=== PATIENT | male | born 1965 | race Caucasian/White ===

== ENCOUNTER 2020-11-04 09:13 | Emergency (ER) | payer OTHER, BC, SELFPAY ==
[2020-11-04 09:15] VITALS: BP 150/92; PULSE 69; RESP 13; TEMP 37.1; O2SAT 99; BMI 25.0
[2020-11-04 09:30] VITALS: BP 132/90; PULSE 69; O2SAT 95
--- NOTE | 2020-11-04 09:34 | ECG_ITS ---
APPROVED REPORT Exam: Resting ECG HR:67 bpm ECG Measurements Heart Rate 67 AXES OK 164 P 57 QRSd 96 QRS 23 QT 384 T 55 QTc 405 Conclusion Normal sinus rhythm Normal ECG Electronically signed by : Jose Schumacher, 11/05/2020 18:08:05
--- NOTE | 2020-11-04 09:56 | XR_ITS ---
PROCEDURE: XR CHEST 2V CLINICAL HISTORY: pain COMPARISON: No exams were available for comparison FINDINGS: The cardiomediastinal silhouette and pulmonary vascularity are within normal limits. The lungs are clear without infiltrates, suspicious nodules, or pleural effusions. No acute bony abnormalities. IMPRESSION: No acute findings. Dictated by: Nuno Gaitan MD 11/04/2020 11:17 Nuno Gaitan MD in [place] 11/04/2020 11:17
[2020-11-04 10:11] LABS: Basophils % 0.5 % (0.1-2.0); Eosinophils # 0.1 K/mm3 (0.0-0.4); Eosinophils % 1.7 % (0.1-12.0); Hematocrit 44.9 % (42.0-52.0); Hemoglobin 15.3 g/dL (14.1-18.0); Lymphocytes # 1.7 K/mm3 (0.7-4.5); Lymphocytes % 23.3 % (10-50); Mean Corpuscular HGB Conc 34.2 g/dL (31.8-35.4); Mean Corpuscular Hemoglobin 32.4 pg (27.0-31.2); Mean Corpuscular Volume 94.8 fl (80-94); Mean Platelet Volume 7.1 fl (7.4-10.4); Monocytes # 0.4 K/mm3 (0.1-1.0); Monocytes % 5.5 % (1.7-9.3); Neutrophils # 4.9 K/mm3 (1.8-7.8); Neutrophils % 69.1 % (37.0-80.0); Platelet Count 341 K/mm3 (142-424); Red Blood Count 4.73 M/mm3 (4.60-6.20); Red Cell Distribution Width 13.3 % (11.5-17.5); White Blood Count 7.1 K/mm3 (4.8-10.8)
[2020-11-04 10:12] LABS: Chloride 105 mmol/L (98-107); Sodium 140 mmol/L (136-145)
[2020-11-04 10:13] LABS: Potassium 3.8 mmoL/L (3.5-5.1)
[2020-11-04 10:16] LABS: Anion Gap 10.8 mEq/L (5-15); Blood Urea Nitrogen 17 mg/dl (9-20); Calcium 9.6 mg/dl (8.4-10.2); Carbon Dioxide 28 mmol/L (22.0-30.0); Creatinine Clearance Estimated 109 mL/min (50-200); Estimated Glomerular Filt Rate 87 ml/min (>60); GFR (African American) 106 ML/MIN (>60); Glucose 103 mg/dl (74-100)
--- NOTE | 2020-11-04 10:16 | PC.NURSE ---
Pt ot rad.
[2020-11-04 10:28] LABS: Troponin I < 0.01 ng/ml (0.00-0.034)
[2020-11-04 10:31] LABS: Coronavirus 19 IgG Antibody Positive (Negative); Coronavirus 19 IgM Antibody Negative (Negative)
[2020-11-04 10:44] VITALS: BP 140/85; PULSE 65; O2SAT 97
[2020-11-04 11:00] VITALS: BP 133/92; PULSE 67; O2SAT 97
--- NOTE | 2020-11-04 12:27 | HMH.EDGENADL ---
ED Disposition Clinical Impression: Left shoulder pain Qualifiers: Chronicity: unspecified Qualified Code(s): M25.512 - Pain in left shoulder Disposition: Home, Self-Care Condition on Discharge: Fair Instructions: DI for Shoulder Pain Additional Instructions: labs and x-rays are as follows: chest x-ray shows no acute findings; CBC shows no acute findings; CMP shows no acute findings; SARS Covid IgG is positive IgM is negative; vital signs are stable; troponin is negative; D-dimer is mildly elevated; Plan is to discharge home with reassurance and advise to follow-up as needed; Please follow up with orthopedics if not improving; We have prescribed medications to help you Prescriptions: methylPREDNISolone [Medrol 4mg tab] 4 mg PO DIRECTED #21 tab Prescription Printed Referrals: PCPKayce [Primary Care Provider] - Time of Disposition: 14:39 - Critical Care Critical Care Time: No Attestation: On 11/04/20, the high probability of a clinically significant, sudden or life threatening deterioration of the following system(s) required my full and direct attention, intervention and personal management. The time I documented below is in addition to time spent performing reported procedures but includes the following listed in this critical care notation. Medical Decision Making - Medical Records Medical records reviewed: Yes: I reviewed the patient's medical records. MR Comment: 54 year old male with c/o upper left top shoulder pain. States that the pain increases when he takes a deep breath or moves his neck that way. He feels some soa but he has that from time to time; he has no family history of heart disease no history of diabetes. Patient's labs and x-rays are as follows chest x-ray shows no acute findings CBC shows no acute findings CMP shows no acute findings SARS Covid IgG is positive IgM is negative vital signs are stable troponin is negative D-dimer is mildly elevated; Plan is to discharge patient home with reassurance and advise to follow-up as needed - Emre Inquiry Pt receiving controlled substance: No Vital Signs: 11/04/20 09:15 11/04/20 09:30 11/04/20 10:44 Temperature 98.7 F Temperature Source Oral Pulse Rate [Left Radial] 69 69 65 Respiratory Rate 13 Blood Pressure [Right Arm] 150/92 H 132/90 140/85 Blood Pressure Mean [Right Arm] 111 104 103 Blood Pressure Source [Right Arm] Automatic Cuff Automatic Cuff Automatic Cuff Blood Pressure Position [Right Arm] Sitting Sitting Sitting 02 Sat by Pulse Oximetry 99 95 97 Oxygen Delivery Method Room Air Room Air 11/04/20 11:00 11/04/20 13:42 Temperature Temperature Source Pulse Rate [Left Radial] 67 65 Respiratory Rate Blood Pressure [Right Arm] 133/92 H 135/88 Blood Pressure Mean [Right Arm] 105 103 Blood Pressure Source [Right Arm] Automatic Cuff Automatic Cuff Blood Pressure Position [Right Arm] Sitting Sitting 02 Sat by Pulse Oximetry 97 97 Oxygen Delivery Method Room Air Room Air - Lab Data Lab results reviewed: Yes: I reviewed the patient's lab results. Lab Results 11/04/20 09:40: WBC 7.1, RBC 4.73, Hgb 15.3, Hct 44.9, MCV 94.8 H, MCH 32.4 H, MCHC 34.2, RDW 13.3, Plt Count 341, MPV 7.1 L, Neut % (Auto) 69.1, Lymph % (Auto) 23.3, [place] % (Auto) 5.5, Eos % (Auto) 1.7, Baso % (Auto) 0.5, Neut # (Auto) 4.9, Lymph # (Auto) 1.7, [place] # (Auto) 0.4, Eos # (Auto) 0.1, Baso # (Auto) 0.0 11/04/20 09:40: Sodium 140, Potassium 3.8, Chloride 105, Carbon Dioxide 28, Anion Gap 10.8, BUN 17, Creatinine 0.90, Estimated Creat Clear 109, Estimated GFR 87, Est GFR ( Amer) 106, Glucose 103 H, Calcium 9.6, Troponin I < 0.01 11/04/20 09:40: SARS-CoV-2 IgG Ab (Rapid) Positive A, SARS-CoV-2 IgM Ab (Rapid) Negative 11/04/20 09:40: D-Dimer 0.65 H Result diagrams: 11/04/20 09:40 11/04/20 09:40 Orders (Tests/Meds): ED MEDICATIONS Discontinued Medications Generic Name Dose Route Start Last Admin Trade Name Freq PRN Reason Stop Dos
[2020-11-04 12:38] LABS: D-Dimer 0.65 ug/mL (0.0-0.5)
[2020-11-04 13:42] VITALS: BP 135/88; PULSE 65; O2SAT 97
--- NOTE | 2020-11-04 14:18 | PC.NURSE ---
repeat trop sent to lab.
[2020-11-04 14:58] LABS: Troponin I < 0.01 ng/ml (0.00-0.034)
[2020-11-04 15:06] VITALS: BP 135/68; PULSE 74; RESP 16; TEMP 36.6; O2SAT 98
== END 2020-11-04 15:08 | disposition home or self-care (01) ==
PROVIDERS: Emergency Provider Emergency Medicine; PCP Family Medicine
DX: M25.512 Pain in left shoulder (principal); Z01.84 Encounter for antibody response examination
CPT/HCPCS: 71046; 80048; 84484; 85025; 85378; 86328; 93005; 96374; 96375; 99283

== ENCOUNTER 2022-04-29 09:42 | Emergency (ER) | payer BC, OTHER, SELFPAY ==
[2022-04-29 09:43] VITALS: BP 137/86; PULSE 66; RESP 16; TEMP 37.1; O2SAT 98; BMI 25.7
[2022-04-29 09:52] VITALS: BP 137/86; PULSE 65; RESP 16; O2SAT 100
--- NOTE | 2022-04-29 10:11 | HMH.EDGENADL ---
ED Disposition Clinical Impression: Left inguinal hernia Disposition: Home, Self-Care Condition on Discharge: Good Instructions: DI for Groin Hernia Additional Instructions: Follow-up with general surgeon, Dr. Jimenez, call for appointment. Avoid lifting anything greater than 20 pounds or straining such as pushing, pulling, or trying to have a bowel movement. You may take ibuprofen for pain. Return to the emergency room if worsening pain, abdominal pain or distention, or vomiting. Referrals: Reva Renae MD [Primary Care Provider] - Alonzo Jimenez MD [Staff Physician] - - Critical Care Critical Care Time: No Attestation: On 04/29/22, the high probability of a clinically significant, sudden or life threatening deterioration of the following system(s) required my full and direct attention, intervention and personal management. The time I documented below is in addition to time spent performing reported procedures but includes the following listed in this critical care notation. Medical Decision Making - Emre Inquiry Pt receiving controlled substance: No Vital Signs: 04/29/22 09:43 04/29/22 09:52 Temperature 98.8 F Temperature Source Oral Pulse Rate 65 Pulse Rate [Radial] 66 Respiratory Rate 16 16 Blood Pressure 137/86 Blood Pressure [Right Arm] 137/86 Blood Pressure Mean 106 Blood Pressure Mean [Right Arm] 103 Blood Pressure Position [Right Arm] Sitting 02 Sat by Pulse Oximetry 98 100 Oxygen Delivery Method Room Air Medical Decision Narrative: He has a left inguinal hernia that is reducible. He declines any pain medication. He will be given a surgical referral. Given precautions regarding lifting and straining. Given return instructions for any symptoms suggesting incarcerated or strangled hernia. General Adult HPI - General Chief complaint: PAIN Stated complaint: side pain Time Seen by Provider: 04/29/22 10:12 Mode of Arrival: Ambulatory Limitations: No Limitations Description of Symptoms (Recalled from ER Triage Doc. by RN): TO ED PER [facility]T CAR WITH C/O INTERMITTENT LT LOWER ABD PAIN STARTING SUNDAY. PT STATES I HAD A STOMACH BUG STARTING SUNDAY WITH DIARRHEA, BUT SYMPTOMS HAVE NOW RESOLVED PT STATES HE HAS HX OF A HERNIA FOR A WHILE . PT STATES PAIN WITH COUGHING OR LAUGHING . PT DENIES ANY FEVER, CHILLS, NAUSEA, VOMITING. - History of Present Illness HPI narrative: States I have a hernia . States he has had it for quite some time, years, but it has been bothering him more lately over the past couple of weeks. More so since he had a stomach bug that caused him to have severe watery diarrhea for 3 days. He complains of pain in his left groin and at times has a visible, palpable mass in that area, states the mass comes and goes. He says he was on his feet at work for an entire shift and this caused increase soreness, stated it hurt all shift. No vomiting. He took Imodium for his recent diarrhea and now has returned to having normal formed bowel movements, his last bowel movement was today. He did not have any fever or bloody diarrhea. He has had a previous right inguinal hernia repair years ago in [place]. - Related Data Previous Rx's Medication Instructions Recorded methylPREDNISolone [Medrol 4mg 4 mg PO DIRECTED #21 tab 11/04/20 tab] Allergies Allergy/AdvReac Type Severity Reaction Status Date / Time No Known Allergies Allergy Verified 11/04/20 09:56 [facility] History - Hepatitis A Screen Attestation statement:: This patient has been screened for Hepatitis A risk factors. I have reviewed the patient's past medical history: Yes ROS Obtained: Yes Systems reviewed as appropriate & no additional complaints - Constitutional Constitutional: Denies fever(s) - Gastrointestinal Gastrointestingal: Reports: as per HPI, abdominal pain, other (Known hernia, as noted). Denies: vomiting Physical Exam - General General appearance
[2022-04-29 10:35] VITALS: BP 128/74; PULSE 78; RESP 16; TEMP 36.6; O2SAT 98
== END 2022-04-29 10:36 | disposition home or self-care (01) ==
PROVIDERS: Emergency Provider Emergency Medicine; PCP Family Medicine
DX: K40.90 Unilateral inguinal hernia, without obstruction or gangrene, not specified as recurrent (principal)
CPT/HCPCS: 99283

== ENCOUNTER → 2022-05-02 09:54 | Outpatient (CLI) | payer BC, OTHER, SELFPAY ==
--- NOTE | 2022-05-02 10:01 | ECG_ITS ---
APPROVED REPORT Exam: Resting ECG HR:64 bpm ECG Measurements Heart Rate 64 AXES LA 173 P 67 QRSd 100 QRS 50 QT 374 T 69 QTc 384 Conclusion SINUS RHYTHM NORMAL ECG UNCONFIRMED REPORT Electronically signed by : Jose Schumacher MD 05/03/2022 21:03:21
[2022-05-02 10:19] LABS: Microscopic, Urine URINE MICROSCOPIC (MICROSCOPIC)
[2022-05-02 10:36] LABS: Appearance,Urine CLEAR (Clear); Bilirubin,Urine Negative (Negative); Blood, Urine Negative (Negative); Color,Urine YELLOW (Yellow); Glucose,Urine (UA) Negative (Negative); Ketones,Urine Negative (Negative); Leukocyte Esterase,Urine Negative (Negative); Nitrate,Urine Negative (Negative); PH,Urine 6.5 (5.0-8.5); Protein,Urine Negative (Negative); Urobilinogen,Urine 0.2 EU/dl (0.2)
[2022-05-02 10:42] LABS: Basophils # 0.1 K/mm3 (0-0.2); Basophils % 0.9 % (0.1-2.0); Eosinophils # 0.1 K/mm3 (0.0-0.4); Eosinophils % 1.4 % (0.1-12.0); Hematocrit 43.6 % (42.0-52.0); Lymphocytes # 1.8 K/mm3 (0.7-4.5); Lymphocytes % 29.8 % (10-50); Mean Corpuscular HGB Conc 34.5 g/dL (31.8-35.4); Mean Corpuscular Hemoglobin 31.5 pg (27.0-31.2); Mean Corpuscular Volume 91.4 fl (80-94); Mean Platelet Volume 7.3 fl (7.4-10.4); Monocytes # 0.3 K/mm3 (0.1-1.0); Monocytes % 5.6 % (1.7-9.3); Neutrophils # 3.8 K/mm3 (1.8-7.8); Neutrophils % 62.3 % (37.0-80.0); Platelet Count 361 K/mm3 (142-424); Red Blood Count 4.77 M/mm3 (4.60-6.20); Red Cell Distribution Width 12.6 % (11.5-17.5); White Blood Count 6.2 K/mm3 (4.8-10.8)
[2022-05-02 10:48] LABS: Bacteria,Urine Trace /lpf; Squamous Epithelial Cell,Urine Occasional #/hpf (0-5)
[2022-05-02 11:28] LABS: Anion Gap 10.3 mEq/L (5-15); Blood Urea Nitrogen 15 mg/dl (9-20); Calcium 9.3 mg/dl (8.4-10.2); Carbon Dioxide 29 mmol/L (22.0-30.0); Chloride 105 mmol/L (98-107); Estimated Glomerular Filt Rate 99 ml/min (>60); GFR (African American) 120 ML/MIN (>60); Glucose 113 mg/dl (74-100); Potassium 4.3 mmoL/L (3.5-5.1); Sodium 140 mmol/L (136-145)
== END ==
PROVIDERS: Visit Provider Surgery
DX: K40.90 Unilateral inguinal hernia, without obstruction or gangrene, not specified as recurrent (principal)
CPT/HCPCS: 36415; 80048; 81001; 85025; 93005

== ENCOUNTER → 2022-05-15 16:34 | Outpatient (CLI) | payer BC, SELFPAY | PROVIDERS: PCP Family Medicine; Visit Provider Surgery | DX: Z01.812 Encounter for preprocedural laboratory examination (principal); Z20.822 Contact with and (suspected) exposure to COVID-19; K40.90 Unilateral inguinal hernia, without obstruction or gangrene, not specified as recurrent | CPT/HCPCS: C9803; U0003; U0005 ==

== ENCOUNTER 2022-05-18 07:21 | Day surgery (SDC) | payer BC, SELFPAY ==
[2022-05-18] VITALS (12 sets, daily range): BP systolic 125–141; BP diastolic 72–84; PULSE 61–74; RESP 16–18; TEMP 36.3–43; O2SAT 92–100; BMI 25.7
--- NOTE | 2022-05-18 08:26 | P.PN_ITS ---
[facility] Anesthesia Checklist - Patient Identification Patient Identification: Arm Band, Verbal (Name & ) - Structural Data Admitted From: Home Planned Operative Procedure/s: Left Inguinal Hernia Consent for Planned Operative Procedure(s) Verified: Yes Verified Documents: Surgical Consent - NPO Status Verified Time NPO: 00:00 - Chart Verification Results Verified: CBC, BMP - Additional verifications Anesthesia Reactions: No Hx Blood Transfusions: No Blood Transfusion Reaction: No - Airway Assessment C-Spine Mobility Assessed: Yes TMJ Mobility Assessed: Yes Dentition: Dentures-poor fitting - Neurological Assessment Level of Consciousness: Awake, Alert, Appropriate - Anesthesia Plan Anesthesia Type: General [facility] History Medical History: Reports:: Hyperlipidemia Denies:: Cancer, Diabetes Mellitus Type 1, Diabetes Mellitus Type 2, Internal Pacemaker, MRSA, Seizures *Have you ever received a pneumonia vaccine?: Yes *Have you received a flu vaccine this season?: No Other Medical History: Denies: Blood Transfusion Reaction Anesthesia experience/problems:: none Laterality Cases: Left: Arthroscopy Shoulder, Bilateral: Arthroscopy Knee Other Surgeries: Yes: Colonoscopy. No: Pacemaker Amputation: No Fractures: Yes - *Social History Last grade of school completed: High school graduate Smoking Status: Former smoker Tobacco Type: cigarettes # Packs/Day (cigarettes): 1 #Yrs smoked (if former smoker): 30 Smoking End Date: 05/22/11 Alcohol Intake: current Alcohol Intake Frequency:: 3 or more drinks per day Substance Use Type: denies use *Occupational Status:: employed Housing: house Household Members: spouse *Travel in the last 8 weeks: None Family Hx:: Hypertension
--- NOTE | 2022-05-18 10:24 | P.OP_ITS ---
Date of procedure: 05/18/22 Pre-op Diagnosis:: Left inguinal hernia Post-op Diagnosis:: Same Procedure performed:: Open left inguinal hernia repair Surgeon:: Alonzo Jimenez MD DOWEL INSERTING MACHINE OPERATOR:: Td Negro Anesthesia: LMA Estimated blood loss (mL): 15 Operative findings:: Indirect defect with large cord lipoma Marginal thinning of floor but no definitive direct defect Operative note:: After informed consent was obtained the patient was taken to the operating room and placed in the supine position. General anesthesia with laryngeal mask airway was achieved. His lower abdomen and groin/scrotum were prepped and draped in a sterile fashion. After infiltration with local anesthetic an oblique left groin incision was made. A combination of sharp dissection and electrocautery was utilized to transect through Nancy's fascia to the level of the external aponeurosis. The external aponeurosis was sharply opened to the level of the external ring. The contents of the canal were carefully elevated. A large cord lipoma was transected free from surrounding tissue and then excised by way of electrocautery. The hernia sac was then freed from surrounding tissue with a combination of blunt dissection, sharp dissection, and electrocautery. An extra-large PerFix plug was secured in the indirect defect with interrupted 0 Ethibond. The PerFix overlay mesh was then secured to the shelving edge inferiorly and fascial margin superiorly with interrupted Ethibond. The external aponeurosis was reapproximated with running 2-0 Vicryl. Nancy's fascia was closed in a similar manner. Skin was then closed with running 3-0 Monocryl Stratafix. Dressings were applied and the patient was transferred to recovery stable condition after removal of his laryngeal mask airway. Condition: stable Disposition: PACU Complications:: No immediate
--- NOTE | 2022-05-18 10:34 | HMH.ANESI ---
[facility] Anesthesia Record Part I Intake, IV Amount: 1,000 Estimated blood loss (mL): 5 Urine output (mL): 300 Blood Pressure: 140/79 SaO2: 92 Pulse Rate: 74 Respiratory Rate: 16 Temperature: 98.1 F Patient is:: Drowsy, Stable Stable to PACU at:: 10:30
[2022-05-18 12:41] LABS: Microscopic,Cath URINE MICROSCOPIC (MICROSCOPIC)
[2022-05-18 12:54] LABS: Appearance,Urine/Cath CLEAR (Clear); Bilirubin,Cath Negative (Negative); Blood, Urine/Cath Negative (Negative); Color,Urine/Cath YELLOW (Yellow); Glucose,Urine/Cath (UA) Negative (Negative); Ketones,Urine/Cath Negative (Negative); Leukocyte Esterase,Cath Negative (Negative); Nitrate,Cath Negative (Negative); Protein,Urine/Cath Negative (Negative); Urobilinogen,Cath 0.2 EU/dl (0.2)
[2022-05-18 13:12] LABS: Amorphous Sediment,Ur/Cath 1+ /lpf; Bacteria,Urine/Cath TRACE /lpf; WBC,Urine/Cath Occasional #/hpf (0-3)
--- NOTE | 2022-05-18 15:08 | HMH.ANESII ---
[facility] Anesthesia Record Part II Discharge Time: 11:00 Destination: Home PACU nurse assessment reviewed?: Yes Patient Condition:: Good Anesthesia Complications:: None Swallowing reflex intact?: Yes Cyanosis?: No Blood Pressure: 125/78 Pulse Rate: 71 Temperature: 98.2 F Mental Status: Alert & Oriented Pain level:: 0 Nausea and/or vomitting:: None Intake, IV Amount: 0
== END 2022-05-18 12:00 | disposition home or self-care (01) ==
LOC: OR 07:23
PROVIDERS: PCP Family Medicine; Visit Provider Surgery
PROC: (CPT 49505; principal; 2022-05-18 09:00)
DX: K40.90 Unilateral inguinal hernia, without obstruction or gangrene, not specified as recurrent (principal); E78.5 Hyperlipidemia, unspecified; Z79.82 Long term (current) use of aspirin; Z79.899 Other long term (current) drug therapy
CPT/HCPCS: 49505; 81001; 96374; J2405

== ENCOUNTER 2022-10-09 09:25 | Emergency (ER) | payer BC, SELFPAY ==
--- NOTE | 2022-10-09 10:27 | EXP.UTC ---
Discharge Plan Disposition Patient Disposition: Home, Self-Care Condition: Good Prescriptions Prescriptions: New azithromycin [Zithromax] 250 mg tablet 250 mg PO UD DOSE PK Qty: 6 0RF Rx Instructions: Take two (2) tablets today, then one (1) tablet days #2 thru #5 benzonatate [benzonatate] 100 mg capsule 100 mg PO TIDP PRN (Reason: Cough) Qty: 30 0RF methylprednisolone 4 mg Tablets,Dose Pack 4 mg PO DIRECTED Qty: 21 0RF No Action fenofibric acid (choline) 135 mg capsule,delayed release(DR/EC) 135 mg PO DAILY atorvastatin 20 mg tablet 20 mg PO DAILY Label Comments: TAKE 1 TABLET BY MOUTH NIGHTLY aspirin 81 mg tablet,delayed release (DR/EC) 81 mg PO DAILY Referrals Follow up/Referrals: Provider,Referral, MD [Primary Care Provider] - See instructions Activity Restrictions/Add. Instructions Additional Instructions/Restrictions: Drink plenty of fluids. Take tylenol or ibuprofen for pain or fever. Take the medications as directed. Follow up with your regular doctor. GO TO THE ER FOR ANY WORSENING SYMPTOMS Clinical Impressions Clinical Impression: Acute bronchitis, Sinusitis Instructions Patient Instructions: Acute Bronchitis, DI for Sinusitis, DI for Acute Bronchitis Discharge ED Provider: Adithya Rock [facility] HPI General Stated complaint: sore throat, head congestion Time Seen by Provider: 10/09/22 10:27 History of Present Illness Provider Complaint: He states that he has had sore throat, chest congestion, sinus congestion, for the past 2 weeks. Related Data Home Medications Medication Instructions Recorded Confirmed aspirin 81 mg tablet,delayed 81 mg PO DAILY heart health 05/02/22 05/31/22 release atorvastatin 20 mg tablet 20 mg PO DAILY Cholesterol 05/02/22 05/31/22 fenofibric acid (choline) 135 mg 135 mg PO DAILY Cholesterol 05/02/22 05/31/22 capsule,delayed release Previous Rx's Medication Instructions Recorded azithromycin 250 mg tablet 250 mg PO UD DOSE PK #6 tabs 10/09/22 (Zithromax) benzonatate 100 mg capsule 100 mg PO TIDP PRN Cough #30 caps 10/09/22 methylprednisolone 4 mg tablets in 4 mg PO DIRECTED #21 tabs 10/09/22 a dose pack Allergies Allergy/AdvReac Type Severity Reaction Status Date / Time No Known Allergies Allergy Verified 10/09/22 10:42 [facility] Disclaimer: The information contained in this section may have been updated after the patient was seen, as this information can be updated by other users. 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 current occupational exposures/hazards: No caffeine: Yes ROS Obtained: Yes All systems reviewed & no additional complaints except as documented Constitutional Constitutional: Reports chills and Denies fever(s) Eyes Eyes: Denies eye discharge ENT Ears, Nose, Mouth, and Throat: Reports as per HPI Cardiovascular Cardiovascular: Denies chest pain Respiratory Respiratory: Denies chest congestion and Reports cough Gastrointestinal Gastrointestingal: Reports nausea; Denies abdominal pain, constipation, cramping, diarrhea or vomiting Musculoskeletal Musculoskeletal: Denies arthralgias Integumentary/Breasts Skin/Breast: Denies rash Neurologic Neurologic: Denies paresthesias Physical Exam General General appearance: alert and in no apparent distress Eye Eye exam: Present normal appearance, PERRL and EOMI ENT ENT exam: Present mucous membranes moist and normal external ear exam Expanded ENT Exam External ear exam: Present normal external inspection TM/Canal exam: Bilateral TM: erythema and bulging Nose exam: Absent sinus te
[2022-10-09 10:40] VITALS: BP 155/90; PULSE 68; RESP 16; TEMP 36.9; O2SAT 97; BMI 24.4
[2022-10-09 10:43] LABS: UTC Influenza A Antigen Negative (Negative)
[2022-10-09 10:44] LABS: UTC Influenza B Antigen Negative (Negative)
[2022-10-09 11:15] VITALS: BP 155/90; PULSE 68; RESP 16; TEMP 36.9
== END 2022-10-09 11:19 | disposition home or self-care (01) ==
PROVIDERS: Emergency Provider Nurse Practitioner Family
DX: J40 Bronchitis, not specified as acute or chronic (principal); J32.9 Chronic sinusitis, unspecified
CPT/HCPCS: 87804; 99212; G0463

== ENCOUNTER 2023-08-18 10:22 | Emergency (ER) | payer BC, OTHER, SELFPAY ==
--- OUTSIDE RECORDS SUMMARY | 2023-08-18 10:26 | XMS_ITS | Continuity of Care Document ---
Author Name Unknown Organization [facility] Address [address] [place] [address] Phone Care Team Providers Care Berry Grower Name Role Phone Anirudh Lawrence MD Unavailable Unavailable Medications Medication Instructions Dosage Effective Dates (start - stop) Status Comments cyclobenzaprine 10 mg tablet take 1 tablet by oral route 3 times every day 10 MG - Active Medrol (Alejo) 4 mg tablets in a dose pack Per package instructions - Active ATORVASTATIN CALCIUM (unknown strength) take 1 tablet by oral route every day Not Available - Active Procedures Procedure Date Njx interlaminar lmbr/sac Methylprednisolone 80 MG inj Office/outpatient visit,est, mod 2019 MRI Lumbar Spine wo Contrast Office/outpatient visit,est, mod 2019 Njx interlaminar lmbr/sac Methylprednisolone 40 MG inj Office/outpatient visit,est, mod 2018 X-ray exam lower spine 2-3 views 2018 Njx interlaminar lmbr/sac Methylprednisolone 40 MG inj
[2023-08-18 10:30] VITALS: BP 152/76; PULSE 69; RESP 18; TEMP 36.8; O2SAT 98; BMI 25.7
--- NOTE | 2023-08-18 10:52 | EXP.UTC ---
Discharge Plan Disposition Patient Disposition: Home, Self-Care Condition: Good Prescriptions Prescriptions: New azithromycin [Zithromax] 250 mg tablet See Rx Instructions .ROUTE .COMPLEX Qty: 6 0RF Rx Instructions: For 250 mg dose pack: take 500 mg today (day 1), then 250 mg for 4 days (days 2-5) prednisone [prednisone] 20 mg tablet 20 mg PO BID Qty: 10 0RF No Action fenofibric acid (choline) 135 mg capsule,delayed release(DR/EC) 135 mg PO DAILY carvedilol 3.125 mg tablet 3.125 mg PO BID Patient Comments: TAKE 1 TABLET BY MOUTH TWICE DAILY WITH MEALS rosuvastatin 40 mg tablet 40 mg PO DAILY Patient Comments: TAKE 1 TABLET BY MOUTH ONCE DAILY IN THE EVENING aspirin 81 mg Capsule 81 mg PO DAILY Referrals Follow up/Referrals: Reva Renae MD [Primary Care Provider] - See instructions Activity Restrictions/Add. Instructions Additional Instructions/Restrictions: Start antibiotic today. Be sure to complete entire prescription even if feeling better Tylenol and ibuprofen as needed for pain or fever Humidifier/vaporizer/hot steamy shower Follow-up with primary care tomorrow. Follow-up immediately in the ER of the [facility] for new or worsening symptoms or no noticeable improvement over the next 48-72 hours. Stop smoking Start steroids today. Helps with inflammation therefore coughing and wheezing. Follow directions on package. Clinical Impressions Clinical Impression: Acute bronchitis Qualifiers: Bronchitis organism: other organism Qualified Code(s): J20.8 - Acute bronchitis due to other specified organisms Instructions Patient Instructions: DI for Acute Bronchitis Discharge ED Provider: Izaiah ([facility])Merritt [facility] HPI General Stated complaint: cough Mode of Arrival: Ambulatory Source of Information: Patient Limitations: No Limitations Time Seen by Provider: 08/18/23 10:52 Description of Symptoms (Recalled from Triage Doc. by RN): cough for a week and a half HEENT Symptoms (Recalled from RN notes): Yes Resp Symptoms (Recalled from RN notes): No Skin Symptoms (Recalled from RN notes): No MS Symptoms (Recalled from RN notes): No Functional Status (Recalled from RN notes): n/a History of Present Illness Provider Complaint: 57 yr old male presents for cough for over one week. pt states he feels its stuck in his chest and he is not able to cough anything up. pt states in march/april he went though treatment chemo/radiation for rectal cancer. Related Data Home Medications Medication Instructions Recorded Confirmed fenofibric acid (choline) 135 mg 135 mg PO DAILY Cholesterol 05/02/22 08/18/23 capsule,delayed release aspirin 81 mg capsule 81 mg PO DAILY 08/18/23 08/18/23 carvedilol 3.125 mg tablet 3.125 mg PO BID 08/18/23 08/18/23 rosuvastatin 40 mg tablet 40 mg PO DAILY 08/18/23 08/18/23 Previous Rx's Medication Instructions Recorded azithromycin 250 mg tablet See Rx Instructions PO .COMPLEX #6 08/18/23 (Zithromax) tabs prednisone 20 mg tablet 20 mg PO BID #10 tabs 08/18/23 Allergies Allergy/AdvReac Type Severity Reaction Status Date / Time No Known Allergies Allergy Verified 08/18/23 10:42 Worker's Comp Is this a Worker's Comp case?: No [facility] Disclaimer: The information contained in this section may have been updated after the patient was seen, as this information can be updated by other users. Medical History (Updated 08/18/23 @ 11:03 by Merritt Bliss ([facility]), [employer]) Hyperlipemia Hypertension Past heart attack Rectal cancer Surgical History (Updated 08/18/23 @ 10:59 by Mireya Nj RN) History of heart artery stent Social History , [employer]) Smoking Status: Former smoker tobacco type: cigarettes packs per day: 1 second hand exposure: No alcohol intake: current substance use type: denies use current occupational status: employed Travel in the last 8 weeks:
[2023-08-18 11:14] VITALS: BP 152/76; PULSE 69; RESP 18; TEMP 36.8; O2SAT 98
== END 2023-08-18 11:14 | disposition home or self-care (01) ==
PROVIDERS: Emergency Provider Nurse Practitioner Family; PCP Family Medicine
DX: J20.8 Acute bronchitis due to other specified organisms (principal); I10 Essential (primary) hypertension; E78.5 Hyperlipidemia, unspecified; Z87.891 Personal history of nicotine dependence; Z95.5 Presence of coronary angioplasty implant and graft; Z85.040 Personal history of malignant carcinoid tumor of rectum; R05.9 Cough, unspecified
CPT/HCPCS: 99212; 99214; G0463

== ENCOUNTER 2024-07-23 09:37 | Emergency (ER) | payer BC, OTHER, SELFPAY ==
[2024-07-23 09:54] VITALS: BP 157/95; PULSE 68; RESP 20; TEMP 37.1; O2SAT 99; BMI 25.4
--- NOTE | 2024-07-23 09:58 | ED_ITS ---
Discharge Plan Disposition Patient Disposition: Home, Self-Care Condition: Good Prescriptions Prescriptions: New benzonatate 100 mg capsule 100 mg PO TIDP PRN (Reason: Cough) Qty: 30 0RF methylprednisolone 4 mg Tablets,Dose Pack 4 mg PO DIRECTED 6 Days Qty: 21 0RF Rx Instructions: Take 1 pack as directed for 6 days amoxicillin-pot clavulanate 875-125 mg Tablet 1 tab PO Q12H Qty: 20 0RF No Action carvedilol 3.125 mg tablet 3.125 mg PO BID Patient Comments: TAKE 1 TABLET BY MOUTH TWICE DAILY WITH MEALS rosuvastatin 40 mg tablet 40 mg PO DAILY Patient Comments: TAKE 1 TABLET BY MOUTH ONCE DAILY IN THE EVENING aspirin 81 mg Capsule 81 mg PO DAILY Referrals Follow up/Referrals: Reva Renae MD [Primary Care Provider] - See instructions Activity Restrictions/Add. Instructions Additional Instructions/Restrictions: Drink plenty of fluids. Take tylenol or ibuprofen for pain or fever. Take the medications as directed. Follow up with your regular doctor. GO TO THE ER FOR ANY WORSENING SYMPTOMS Clinical Impressions Clinical Impression: Sinusitis Acute bronchitis Qualifiers: Bronchitis organism: other organism Qualified Code(s): J20.8 - Acute bronchitis due to other specified organisms Stand Alone Forms Stand Alone Forms: Work/School Release Instructions Patient Instructions: Sinusitis, DI for Sinusitis Print Language Print Language: Armenian Discharge ED Provider: Adithya Rock [facility] General Stated complaint: sore throat, cough, runny nose, congestion Mode of Arrival: Ambulatory Source of Information: Patient Time Seen by Provider: 07/23/24 09:58 Description of Symptoms (Recalled from Triage Doc. by RN): COLD/FLU LIKE S/S THAT STARTED SUNDAY. CLEAR DRAINAGE AND HEADACHE, SOME MILD BODY ACHES HAD TO LEAVE WORK TODAY DUE SICKNESS HEENT Symptoms (Recalled from RN notes): Yes Resp Symptoms (Recalled from RN notes): Yes Skin Symptoms (Recalled from RN notes): No MS Symptoms (Recalled from RN notes): No Functional Status (Recalled from RN notes): WNL Related Data Home Medications ?Medication ?Instructions ?Recorded ?Confirmed aspirin 81 mg capsule 81 mg PO DAILY 08/18/23 07/23/24 carvedilol 3.125 mg tablet 3.125 mg PO BID 08/18/23 07/23/24 rosuvastatin 40 mg tablet 40 mg PO DAILY 08/18/23 07/23/24 Previous Rx's ?Medication ?Instructions ?Recorded amoxicillin 875 mg-potassium 1 tab PO Q12H #20 tabs 07/23/24 clavulanate 125 mg tablet benzonatate 100 mg capsule 100 mg PO TIDP PRN Cough #30 caps 07/23/24 methylprednisolone 4 mg tablets in 4 mg PO DIRECTED 6 days #21 tabs 07/23/24 a dose pack Allergies Allergy/AdvReac Type Severity Reaction Status Date / Time No Known Allergies Allergy Verified 08/18/23 10:42 Worker's Comp Is this a Worker's Comp case?: No [facility] Disclaimer: The information contained in this section may have been updated after the patient was seen, as this information can be updated by other users. 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 current occupational exposures/hazards: No caffeine: Yes ROS Obtained: Yes All systems reviewed & no additional complaints except as documented Constitutional Constitutional: Reports chills and Reports fever(s) Eyes Eyes: Denies eye discharge ENT Ears, Nose, Mouth, and Throat: Reports as per HPI Cardiovascular Cardiovascular: Denies chest pain Respiratory Respiratory: Denies chest congestion and Reports cough Gastrointestinal Gastrointestingal: Reports nausea; Denies abdominal pain, constipation, cramping, diarrhea or vomiting Musculoskeletal Musculoskeletal: Denies arthralgias Integumentary/Breasts Skin/Breast: Denies rash Neurologic Neurologic: Denies paresthesias Physical Exam General General appearance: alert and in no apparent distress Head Head exam: atraumatic, normocephalic and normal inspection Eye Eye exam: Present normal appearance, PERRL and EOMI ENT ENT exam: Present mucous membranes moist and normal external ear exam Expanded ENT Exam TM/Canal exam: Bilateral TM: erythema and bulging Nose exam: Absent sinus tenderness Mouth exam: Present normal external inspection; Absent drooling Teeth exam: Present normal inspection Throat exam: Present tonsillar erythema, tonsillomegaly and tonsillar exudate Neck Neck exam: Present normal inspection, full ROM and trachea midline; Absent tenderness, meningismus or lymphadenopathy Chest Chest inspection: Present normal inspection and symmetric chest wall rise; Absent tenderness Respiratory Respiratory exam: Present normal lung sounds bilaterally; Absent respiratory distress, wheezes, stridor or accessory muscle use Cardiovascular Cardiovascular exam: Present regular rate and normal rhythm; Absent systolic murmur or diastolic murmur Abdominal Exam Abdominal exam: Present soft and normal bowel sounds; Absent distention, tenderness, guarding, rebound or rigidity Extremities Exam Extremities exam: Present normal inspection and normal capillary refill; Absent calf tenderness Back Exam Back exam: Present normal inspection and full ROM; Absent tenderness, CVA tenderness (R) or CVA tenderness (L) Neurological Exam Neurological exam: Present alert, oriented X3 and CN II-XII intact Psychiatric Psychiatric exam: Present normal affect and normal mood Skin Skin exam: Present warm, dry, intact and normal color Medical Decision Making Medical Records Medical records reviewed: No I reviewed the patient's medical records. Screening: Per USPSTF and CDC recommendations, given the prevalence of disease in our region, it is our hospital?s policy to screen for HIV and viral Hepatitis for all patients aged 18 and over and those with ongoing risk factors. Emre Inquiry Pt receiving controlled substance: No Vital Signs: 07/23/24 09:54 Temperature 98.7 F Temperature Source Oral Pulse Rate [Left Radial] 68 Respiratory Rate 20 Blood Pressure [Left Arm] 157/95 H Blood Pressure Mean [Left Arm] 115 02 Sat by Pulse Oximetry 99 Lab Data Lab results reviewed: Yes I reviewed the patient's lab results.
[2024-07-23 10:06] LABS: UTC Influenza A Antigen Negative (Negative); UTC Influenza B Antigen Negative (Negative)
[2024-07-23 10:12] VITALS: BP 157/95; PULSE 68; RESP 20; TEMP 37.1
== END 2024-07-23 10:12 | disposition home or self-care (01) ==
PROVIDERS: Emergency Provider Nurse Practitioner Family; PCP Family Medicine
DX: J20.8 Acute bronchitis due to other specified organisms (principal)
CPT/HCPCS: 87804; 99213; G0381